=== PATIENT | female | born 1980 | race Caucasian/White ===

== ENCOUNTER 2022-05-14 16:41 | Emergency (ER) | payer OTHER ==
[~2022-05-14] VITALS: Ht 165.1 cm; Wt 79.4 kg
[2022-05-14] MEDS ORDERED: PRED20 PO (21:58)
[2022-05-14] MEDS ORDERED: TRAM50 PO (21:58)
== END 2022-05-14 22:35 | disposition home or self-care (01) ==
LOC: ER 16:41
DX: S16.1XXA Strain of muscle, fascia and tendon at neck level, initial encounter (principal); Z88.8 Allergy status to other drugs, medicaments and biological substances; X58.XXXA Exposure to other specified factors, initial encounter
CPT/HCPCS: 36415; 70498; J1885; Q9967